=== PATIENT | female | born 1955 | race Caucasian/White ===

== ENCOUNTER 2016-12-22 17:36 | Emergency (ER) | payer BC ==
[~2016-12-22] VITALS: Ht 149.9 cm; Wt 80.7 kg
[~2016-12-22 17:36] MED LIST: CLOR1TAB23; CYCL-36 PO; NEXI20CA PO; OXYC-360 PO
[2016-12-22 17:45] VITALS: BP 173/98; PULSE 89; RESP 20; TEMP 97.3; O2SAT 100
[2016-12-22] MEDS ORDERED: NEXI20CA PO (17:59)
[2016-12-22] MEDS ORDERED: DIURTAB (17:59)
[2016-12-22] MEDS ORDERED: BUPR150CR PO (17:59)
[2016-12-22] MEDS ORDERED: CHLO7.5 PO (17:59)
--- NOTE | 2016-12-22 18:06 | PD ---
HPI Chief Complaint: Fall Time Seen by Provider: 17:57 Travel History International Travel<30 days: No Contact w/Intl Traveler<30days: No Traveled to known affect area: No History of Present Illness HPI 61-year-old female patient presents to the ER today, states that she tripped over a baby gate and fell onto her left side hitting her left leg and hip area, also hit her left shoulder, but was trying to brace, hit her head but had no loss consciousness. She was able to get up with help. She complains of pain in the left hip all the way down to the knee area, is unable to fully extend her knee. She denies any headaches, vomiting, chest pains, shortness of breath , or any other injuries. Modifying Factors: None Associated Signs & Symptoms: Fall, left leg injury, left arm injury Risk Factors: None PFSH Past Medical History Arthritis: No Autoimmune Disease: No Blood Disorders: No Anxiety: Yes Depression: Yes Heart Rhythm Problems: No Cancer: No Cardiovascular Problems: Yes (THIS ADMISSION CHEST PAIN FOR 4 DAYS) High Cholesterol: No Chemotherapy: No Chest Pain: Yes (FOR FOUR DAYS) Congestive Heart Failure: No Cerebrovascular Accident: No Endocrine: No Gastrointestinal Disorders: Yes GERD: No Genitourinary: No Headaches: Yes Hepatitis: Yes (HEPATITIS C) Hiatal Hernia: No Hypertension: No Immune Disorder: No Musculoskeletal: No Neurologic: Yes Psychiatric: Yes Reproductive: Yes (HYSTERECTOMY) Respiratory: No Migraines: No Myocardial Infarction: No Radiation Therapy: No Seizures: No Ulcer: No Menopausal: Yes Past Surgical History Abdominal Surgery: No AICD: No Appendectomy: No Arteriovenous Shunt: No Cardiac Surgery: No Cholecystectomy: No Ear Surgery: No Endocrine Surgery: No Eye Surgery: No Genitourinary Surgery: No Gynecologic Surgery: Yes (HYSTERECTOMY) Hysterectomy: Yes Insulin Pump: No Joint Replacement: No Oral Surgery: No Pacemaker: No Thoracic Surgery: No Other Surgery: Yes Social History Alcohol Use: Yes Tobacco Use: Yes Substance Use: No Allergies-Medications (Allergen,Severity, Reaction): Coded Allergies: codeine (Unverified Allergy, Mild, NAUSEA, 11/13/16) morphine (Verified Allergy, Unknown, 12/22/16) Reported Meds & Prescriptions Reported Meds & Active Scripts Active Reported Nexium (Esomeprazole DR) 20 Mg Capdr 20 Mg PO DAILY [Diuretic] Tranxene T (Clorazepate Dipotassium) 7.5 Mg Tab 7.5 Mg PO BID PRN Wellbutrin SR 12 HR (Bupropion HCl) 150 Mg Tab 150 Mg PO Q12HR Review of Systems Except as stated in HPI: all other systems reviewed are Neg Physical Exam Narrative GENERAL: Well-developed elderly white female patient currently in mild distress. Awake and oriented 3.] SKIN: Focused skin assessment warm/dry. HEAD: Atraumatic. Normocephalic. EYES: Pupils equal and round. No scleral icterus. No injection or drainage. ENT: No nasal bleeding or discharge. Mucous membranes pink and moist. NECK: Trachea midline. No JVD. Supple. No midline C-spine tenderness or step- offs. CARDIOVASCULAR: Regular rate and rhythm. No murmur appreciated. RESPIRATORY: No accessory muscle use. Clear to auscultation. Breath sounds equal bilaterally. GASTROINTESTINAL: Abdomen soft, non-tender, nondistended. Hepatic and splenic margins not palpable. Pelvis: Stable but tender to palpation of the left hip area. EXTREMITIES: No clubbing, cyanosis, or edema. There is notable ecchymosis at the left knee, no obvious bony injuries, tender palpation of the entire left lateral thigh. Neurovascularly intact. Nontender to palpation of the ankle. Left shoulder has nontender range of motion, no obvious deformities. Mildly tender palpation of the left upper arm area. Neurovascularly intact with good online health and fitness coach otherwise. MUSCULOSKELETAL: No obvious deformities. No clubbing. No cyanosis. No edema. NEUROLOGICAL: Awake and alert. No obvious cranial nerve deficits. Motor grossly within normal limits. Normal speech. PSYCHIATRIC: Appropriate mood and affect; insight and judgment normal. Data Data Last Documented VS Vital Signs Date Time Temp Pulse Resp B/P (MAP) Pulse Ox O2 Delivery O2 Flow Rate FiO2 12/22/16 19:08 88 18 196/98 (130) 99 Room Air 12/22/16 17:45 97.3 Orders Orders Femur (Ap & Lat/2vws) (12/22/16 17:57) Humerus (Min 2vws) (12/22/16 17:57) Tibia/Fibula (Ap/Lat) (12/22/16 17:57) Pelvis, Ap Only (Routine) (12/22/16 17:57) Acetamin-Hydrocod 325-5 Mg ([place] 5-325 (12/22/16 19:15) [facility] Medical Decision Making Medical Screen Exam Complete: Yes Emergency Medical Condition: Yes Medical Record Reviewed: Yes Interpretation(s) Last 24 hours Impressions Pelvis X-Ray 12/22/161756 Signed Impressions: Service Date/Time: Thursday, December 22, 2016 18:28 - CONCLUSION: Negative trauma study. Jose A Ritchie MD Humerus X-Ray [id number]/22/161756 Signed Impressions: Service Date/Time: Thursday, December 22, 2016 18:13 - CONCLUSION: Negative trauma study. Jose A Ritchie MD Differential Diagnosis fall, left leg injury left arm injury: Contusions versus fractures Narrative Course X-rays did not show any signs of acute fractures. At this point, my plan would be to place her in knee immobilizer, crutches, keep her off the leg for about a week. Follow-up with primary care physician, return for worsening in pain or new symptoms as needed. Patient had what appears to be a minor head injury with no loss of consciousness, a CAT scan or other studies are not indicated in this case. Patient is not on blood thinners. She should return for any worsening in pain, or new symptoms as needed. The plan has discussed with her and she states understanding. Diagnosis Primary Impression: Contusion of left leg Additional Impressions: Arm contusion Minor head injury Med/Other Pt SpecificInfo: Prescription(s) given Scripts Hydrocodone-Acetaminophen (Lortab) 5-325 Mg Tab 1 TAB PO Q6H Y for PAIN, #12 TAB 0 Refills Prov: Ish Kahn MD 12/22/16 Disposition: 01 DISCHARGE HOME Condition: Stable Ish Kahn MD Dec 22, 2016 18:06
--- NOTE | 2016-12-22 19:01 | RADRPT ---
EXAM DATE/TIME: 12/22/2016 18:28 [facility] COMPARISON: No previous studies available for comparison. INDICATIONS : Pelvic pain post fall. MEDICAL HISTORY : None. SURGICAL HISTORY : None. ENCOUNTER: Initial ACUITY: 1 day PAIN SCORE: 8/10 LOCATION: Pelvis FINDINGS: A single frontal view of the pelvis demonstrates no evidence of fracture. The bony pelvic ring is in tact. Bony mineralization is normal. The soft tissues are intact. CONCLUSION: Negative trauma study. Jose A Ritchie MD on December 22, 2016 at 18:59 Board Certified Radiologist. This report was verified electronically.
--- NOTE | 2016-12-22 19:01 | RADRPT ---
EXAM DATE/TIME: 12/22/2016 18:13 [facility] COMPARISON: No previous studies available for comparison. INDICATIONS : Left upper arm pain post fall. MEDICAL HISTORY : None. SURGICAL HISTORY : None. ENCOUNTER: Initial ACUITY: 1 day PAIN SCORE: 8/10 LOCATION: Left humerus FINDINGS: Two view examination of the left humerus demonstrates no evidence of fracture or dislocation. Bony m ineralization is normal. The soft tissue structures are intact. CONCLUSION: Negative trauma study. Jose A Ritchie MD on December 22, 2016 at 18:58 Board Certified Radiologist. This report was verified electronically.
--- NOTE | 2016-12-22 19:02 | RADRPT ---
EXAM DATE/TIME: 12/22/2016 18:14 [facility] COMPARISON: No previous studies available for comparison. INDICATIONS : Left lower leg pain post fall. MEDICAL HISTORY : None. SURGICAL HISTORY : Left lower leg ORIF. ENCOUNTER: Initial ACUITY: 1 day PAIN SCORE: 8/10 LOCATION: Left lower leg FINDINGS: Two view examination of the left tibia demonstrates no evidence of fracture or dislocation. Bony min eralization is normal. The soft tissue structures are intact. There is old fracture deformity of the distal tibia. CONCLUSION: 1. No acute fracture or malalignment. Old fracture deformity of the distal tibia. Jose A Ritchie MD on December 22, 2016 at 19:00 Board Certified Radiologist. This report was verified electronically.
--- NOTE | 2016-12-22 19:02 | RADRPT ---
EXAM DATE/TIME: 12/22/2016 18:28 [facility] COMPARISON: No previous studies available for comparison. INDICATIONS : Left upper leg pain post fall. MEDICAL HISTORY : None. SURGICAL HISTORY : None. ENCOUNTER: Initial ACUITY: 1 day PAIN SCORE: 8/10 LOCATION: Left femur FINDINGS: Two view examination of the left femur demonstrates no evidence of fracture or dislocation. Bony min eralization is normal. The soft tissue structures are intact. CONCLUSION: Negative trauma study. Jose A Ritchie MD on December 22, 2016 at 19:00 Board Certified Radiologist. This report was verified electronically.
[2016-12-22 19:08] VITALS: BP 196/98; PULSE 88; RESP 18; O2SAT 99
[2016-12-22] MEDS ORDERED: ACETAMINOPHEN/HYDROcodone 325 MG/5 MG TAB PO ONE (19:15)
[2016-12-22] MEDS ORDERED: HYDR-3533 PO (19:17)
== END 2016-12-22 20:24 | disposition home or self-care (01) ==
LOC: PHED 17:36
DX: S80.12XA Contusion of left lower leg, initial encounter (principal); S40.029A Contusion of unspecified upper arm, initial encounter; S09.90XA Unspecified injury of head, initial encounter; W18.09XA Striking against other object with subsequent fall, initial encounter
CPT/HCPCS: 72170; 73060; 73552; 73590; 99284; E0113; L1830